=== PATIENT | female | born 1985 | race Caucasian/White ===

== ENCOUNTER 2017-02-15 17:47 | Emergency (ER) | payer OTHER, MEDICAID ==
[~2017-02-15] VITALS: Ht 149.9 cm; Wt 70.0 kg
[2017-02-15 17:49] VITALS: BP 132/82; PULSE 105; RESP 15; TEMP 98.1; O2SAT 98
[2017-02-15] MEDS ORDERED: PRIL20TA2 PO (18:05)
--- NOTE | 2017-02-15 18:26 | PD ---
HPI Chief Complaint: Injury Time Seen by Provider: 18:26 Travel History International Travel<30 days: No Contact w/Intl Traveler<30days: No Traveled to known affect area: No History of Present Illness HPI 32-year-old female presents to the emergency department for evaluation of right shoulder pain for 1 week after carrying heavy bags up a flight of stairs. 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 States that the pain is in her anterior shoulder. Pain is constant however is aggravated with movement or lifting. Pain is described as a sore aching pain. States that she does have a full popping sensation with movement of the shoulder. Denies numbness or tingling, weakness. States that she was seen at [facility] one week ago for the same complaint and was prescribed anti-inflammatories. She's been taking these medications without improvement of symptoms. Denies , last menstrual period 1 week ago. No other complaints. PFSH Past Medical History Immunizations Current: Yes Sleep Apnea: Yes ?: Not LMP: 02/05/17 : 5 Para: 6 Past Surgical History Section: Yes (x1) Cholecystectomy: Yes Genitourinary Surgery: Yes (ovarian cyst removed form right ovary) Social History Alcohol Use: Yes (rare) Tobacco Use: No Substance Use: No Allergies-Medications (Allergen,Severity, Reaction): Coded Allergies: Darvocet-N 100 (Unverified Allergy, Mild, 02/15/17) Reported Meds & Prescriptions Reported Meds & Active Scripts Active Lortab (Hydrocodone-Acetaminophen) 5-325 Mg Tab 1 Tab PO Q6H PRN Reported Prilosec (Omeprazole Magnesium) 20 Mg Tab 1 Tab PO DAILY Review of Systems Except as stated in HPI: all other systems reviewed are Neg Physical Exam Narrative GENERAL: Well-nourished and well-developed pleasant female patient in no acute distress who is nontoxic appearing. SKIN: Warm and dry. HEAD: Normocephalic and atraumatic. EYES: No injection, drainage, or hyphema noted. PERRLA. EOMI. ENT: No nasal drainage noted. Oropharynx is clear. NECK: Supple and the trachea is midline. CARDIOVASCULAR: Regular rate and rhythm. RESPIRATORY: Breath sounds are equal bilaterally with no accessory muscle use, wheezing, rhonchi, or crackles. MUSCULOSKELETAL: Tenderness to palpation of right anterior shoulder, there is joint crepitus with active range of motion. Radial pulses 2+ bilaterally. Strength 5/5 upper extremities and equal bilaterally. No obvious deformities, swelling, cyanosis, or ecchymosis is present throughout the upper and lower extremities. Patient has full range of motion without any signs of neurovascular compromise. NEUROLOGICAL: Awake, alert, and oriented. Normal speech and gait. Cranial nerves are grossly intact. Data Data Last Documented VS Vital Signs Date Time Temp Pulse Resp B/P Pulse Ox O2 Delivery O2 Flow Rate FiO2 02/15/17 17:49 98.1 105 15 132/82 98 Orders Shoulder, Complete (>2vws) (02/15/17 18:25) [facility] Medical Decision Making Medical Screen Exam Complete: Yes Emergency Medical Condition: Yes Differential Diagnosis Ligamentous injury versus muscle strain versus tendinitis versus arthritis Narrative Course 32-year-old female presents to the emergency department for evaluation of right shoulder pain after carrying heavy bags last week. Patient is afebrile, vital signs are stable. Right upper extremity is neurovascularly intact. X-ray imaging has been ordered and is pending. X-ray of the right shoulder is negative for any acute abnormalities. X-ray is unremarkable. I suspect that the patient has a ligamentous injury. The patient will be given a short prescription for Lortab. Encouraged to continue taking NSAIDs and to follow-up with her Worker's Comp. physician. Diagnosis Primary Impression: Right shoulder injury Qualified Code: S49.91XA - Right shoulder injury, initial encounter Referrals: Orthopedist Primary Care Physician Patient Instructions: General Instructions Additional Instructions: Apply ice or heat to help alleviate symptoms. Take medication as prescribed with food and a full glass of water. Follow-up with your Primary Care Physician. Return to the ED for any acute worsening of symptoms. Med/Other Pt SpecificInfo: Prescription(s) given Scripts Hydrocodone-Acetaminophen (Lortab)5-325 Mg Tab1 Tab PO Q6H PRN (PAIN GREATER THAN 6) #15 TAB Ref 0 Prov:Santosh Newman MD 02/15/17 Disposition: 01 DISCHARGE HOME Condition: Stable Lamar Carreon Feb 15, 2017 18:26
--- NOTE | 2017-02-15 19:22 | RADRPT ---
EXAM DATE/TIME: 02/15/2017 18:57 [facility] COMPARISON: No previous studies available for comparison. INDICATIONS : Right shoulder pain MEDICAL HISTORY : None. SURGICAL HISTORY : None. ENCOUNTER: Initial ACUITY: 1 day PAIN SCORE: 9/10 LOCATION: Right shoulder FINDINGS: Multiple view examination of the right shoulder demonstrates no evidence of fracture or dislocation. The glenohumeral and acromioclavicular joints are maintained. There is normal range of motion betwe en internal and external rotation. Bony mineralization is normal. CONCLUSION: Unremarkable examination of the right shoulder. Artur Hopkins MD on February 15, 2017 at 19:21 Board Certified Radiologist. This report was verified electronically.
[2017-02-15] MEDS ORDERED: HYDR-3533 PO (19:26)
== END 2017-02-15 19:51 | disposition home or self-care (01) ==
LOC: NEPD 17:47
DX: S49.91XA Unspecified injury of right shoulder and upper arm, initial encounter (principal); G47.30 Sleep apnea, unspecified; X50.0XXA Overexertion from strenuous movement or load, initial encounter
CPT/HCPCS: 73030; 99283

== ENCOUNTER 2017-12-22 09:47 | Emergency (ER) | payer MEDICAID, OTHER ==
[~2017-12-22] VITALS: Ht 152.4 cm; Wt 70.5 kg
[~2017-12-22 09:47] MED LIST: HYDR-3533 PO; PRIL20TA2 PO
[2017-12-22 09:48] VITALS: BP 123/71; PULSE 97; RESP 16; TEMP 99; O2SAT 98
[2017-12-22] MEDS ORDERED: CLAR10CA3 PO (10:09)
[2017-12-22] MEDS ORDERED: MEDR4PAK PO (10:09)
[2017-12-22] MEDS ORDERED: FAMO1TAB73 PO (10:09)
--- NOTE | 2017-12-22 10:13 | PD ---
HPI Chief Complaint: Skin Problem Time Seen by Provider: 09:54 Travel History International Travel<30 days: No Contact w/Intl Traveler<30days: No Traveled to known affect area: No History of Present Illness HPI Patient comes in complaining of about a couple days worth of a rash, diffuse throughout body, itchy, gets worse with scratching, also has noted swelling to left eyelid. Denies any alleviating or aggravating factors. Denies any associated factors such as shortness of breath, chest pain, swelling to tongue, lightheadedness, dizziness, headache, nausea, vomiting, or diarrhea. Patient is unsure there has been any new changes, states that she knows for sure no new soap or detergent. However she does work with cleaning type chemicals. Patient states that she has allergy to Darvocet-states that she develops shortness of breath to Patient denies any significant medical or surgical history except for sleep apnea and cholecystectomy with a single as well. PFSH Past Medical History Immunizations Current: Yes Sleep Apnea: Yes : 5 Para: 6 Past Surgical History Section: Yes (x1) Cholecystectomy: Yes Genitourinary Surgery: Yes (ovarian cyst removed form right ovary) Social History Alcohol Use: Yes (rare) Tobacco Use: No Substance Use: No Allergies-Medications (Allergen,Severity, Reaction): Coded Allergies: acetaminophen (Unverified Allergy, Mild, 12/22/17) propoxyphene (Unverified Allergy, Mild, 12/22/17) Reported Meds & Prescriptions Reported Meds & Active Scripts Active Medrol Dosepak (Methylprednisolone) 4 Mg Dspk 4 Mg PO DIRECTED Per Pharmacist direction Pepcid (Famotidine) 40 Mg Tab 40 Mg PO DAILY 10 Days Claritin (Loratadine) 10 Mg Cap 10 Mg PO DAILY 10 Days Lortab (Hydrocodone-Acetaminophen) 5-325 Mg Tab 1 Tab PO Q6H PRN Reported Prilosec (Omeprazole Magnesium) 20 Mg Tab 1 Tab PO DAILY Review of Systems Except as stated in HPI: all other systems reviewed are Neg General / Constitutional: No: Fever Eyes: No: Visual changes HENT: No: Headaches Cardiovascular: No: Chest Pain or Discomfort Respiratory: No: Shortness of Breath Gastrointestinal: No: Abdominal Pain Genitourinary: No: Dysuria Musculoskeletal: No: Pain Skin: Positive Rash, Positive Itching Neurologic: No: Weakness Psychiatric: No: Depression Endocrine: No: Polydipsia Hematologic/Lymphatic: No: Easy Bruising Physical Exam Narrative GENERAL: SKIN: Warm and dry. Hives found throughout the trunk and extremities HEAD: Atraumatic. Normocephalic. EYES: Pupils equal and round. No scleral icterus. No injection or drainage. Edema at the left superior palpebral region ENT: No nasal bleeding or discharge. Mucous membranes pink and moist. No lip or tongue or uvular edema NECK: Trachea midline. No JVD. No stridor CARDIOVASCULAR: Regular rate and rhythm. RESPIRATORY: No accessory muscle use. Clear to auscultation. Breath sounds equal bilaterally. No wheezing GASTROINTESTINAL: Abdomen soft, non-tender, nondistended. MUSCULOSKELETAL: Extremities without clubbing, cyanosis, or edema. No obvious deformities. NEUROLOGICAL: Awake and alert. No obvious cranial nerve deficits. Motor grossly within normal limits. Five out of 5 muscle strength in the arms and legs. Normal speech. PSYCHIATRIC: Appropriate mood and affect; insight and judgment normal. Data Data Last Documented VS Vital Signs Date Time Temp Pulse Resp B/P (MAP) Pulse Ox O2 Delivery O2 Flow Rate FiO2 12/22/17 10:43 85 125/65 12/22/17 09:48 99.0 16 98 Orders Orders Prednisone (Deltasone) (12/22/17 10:15) Epinephrine (1:1000) Inj (Adrenalin (1:1 (12/22/17 10:15) Famotidine (Pepcid) (12/22/17 10:15) Diphenhydramine (Benadryl) (12/22/17 10:15) Ed Discharge Order (12/22/17 10:16) [facility] Medical Decision Making Medical Screen Exam Complete: Yes Emergency Medical Condition: Yes Medical Record Reviewed: Yes Differential Diagnosis Viral syndrome versus allergic reaction versus angioedema Narrative Course Clinically the patient has hives and small/minimal angioedema of the left eyelid , the patient does not have any respiratory distress signs, no tachypnea, no hypoxemia, no stridor, no wheezing and no uvular edema. Patient is otherwise stable Diagnosis Primary Impression: Allergic reaction Patient Instructions: General Allergic Reaction (ED), General Instructions Scripts Methylprednisolone Dosepak (Medrol Dosepak) 4 Mg Dspk 4 MG PO DIRECTED, #1 DSPK 0 Refills Per Pharmacist direction Prov: David Talavera MD 12/22/17 Famotidine (Pepcid) 40 Mg Tab 40 MG PO DAILY for 10 Days, #10 TAB 0 Refills Prov: David Talavera MD 12/22/17 Loratadine (Claritin) 10 Mg Cap 10 MG PO DAILY for Allergy Management for 10 Days, #10 CAP 0 Refills Prov: David Talavera MD 12/22/17 Disposition: 01 DISCHARGE HOME Condition: Stable David Talavera MD December 22, 2017 10:12
[2017-12-22] MEDS ORDERED: diphenhydrAMINE HCL 25 MG CAP PO ONE (10:15)
[2017-12-22] MEDS ORDERED: predniSONE 20 MG TAB PO ONE (10:15)
[2017-12-22] MEDS ORDERED: EPINEPHrine HCL (1:1000) 1 MG/ML VIAL IM ONE (10:15)
[2017-12-22] MEDS ORDERED: FAMOTIDINE 20 MG TAB PO ONE (10:15)
[2017-12-22 10:43] VITALS: BP 125/65; PULSE 85
== END 2017-12-22 11:57 | disposition home or self-care (01) ==
LOC: NEPD 09:47
DX: T78.40XA Allergy, unspecified, initial encounter (principal)
CPT/HCPCS: 96372; 99283; J0171; J7512